=== PATIENT | female | born 1930 | race Caucasian/White ===

== ENCOUNTER → 2017-03-25 | Outpatient (CLI) | payer OTHER ==
[~2017-03-25] MED LIST: ADVIN25/60 INH; ASPI81TA28 PO; ATEN-173 PO; CALC500C3 PO; CALCTAB5 PO; CHOL1000 PO; CHOL100010 PO; CLB100 PO; CYAN10005 PO; ERGO500037 PO; GLIP2.5T11 PO; LEVO100T7 PO; LOSA50TA6 PO; MULT-506 PO; OXYC-57 PO; SIMV20TA2 PO; SYMIN8045 INH; VNTHFA/IN INH; ZNTT/150 PO
[2017-03-25 13:20] VITALS: BP 153/83; PULSE 61; TEMP 36.6; O2SAT 96
--- NOTE | 2017-03-25 15:53 | Radiation Oncology Follow-Up ---
Radiation Oncology Follow-Up Date of Visit March 25, 2017. (Tiana Simon PA-C) Reason For Visit 6 month follow-up (Tiana Simon PA-C) Radiation Completion Date finished radiation 03-28-2016, including external beam and 3 HDR treatments (Tiana Simon PA-C) Diagnosis (1) Endometrial adenocarcinoma Status: Resolved Onset Date: 09/20/2015 Stage: l (B) Permanent Comment: DIAGNOSIS: Uterus, endometrioid adenocarcinoma, FIGO grade 3 , FIGO stage IB TREATMENT: [facility] - (Dr. Gomez - 12/05/2015) Status post completion of radiation therapy 03/28/2016 received external beam treatment 4500 cGy as well as 3 HDR treatments 400 cGy each Last Edited By: Tiana Simon on Sep 12, 2016 10:50 (Tiana Simon PA-C) History of Present Illness Ms. Marrero is a 86-year-old female who presents with a recent history of postmenopausal abnormal uterine bleeding which started in April 2015. She was initially evaluated by Dr. Jarvis in urology who did perform cystoscopy 2014 which showed no evidence of bleeding from the bladder or any abnormal lesions. She was referred to gynecology oncology and in underwent a biopsy by Dr. De La Rosa on 09/20/2015 of the endometrium which revealed FIGO grade 1 endometrioid adenocarcinoma. She did have a transvaginal ultrasound which was completed on 10/05/2015 which revealed a 9 mm hypoechoic avascular structure in the endometrium otherwise no thickened endometrial stripe. She was then referred to Dr. Cece Gomez who recommended extrafascial hysterectomy and left salpingo-oophorectomy. She underwent the abdominal hysterectomy and bilateral sub-nephrectomy on 12/05/2015 which revealed poorly differentiated adenocarcinoma that was predominantly FIGO grade 3 that invaded 87% of the myometrium (13/15 mm). Also noted was extensive lymphovascular space invasion. The tumor measured 2.0 cm in the greatest dimension. There was no involvement of left ovary or fallopian tube. 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 We are now seeing the patient in consultation to discuss the role of radiation therapy. Decision was to treat with external beam radiation therapy as well as HDR treatments. Radiation was completed 03/28/2016 (Tiana Simon PA-C) Interim History She's been doing well over the past 6 months. She denies any vaginal discharge. She has not use the vaginal dilator over the past 6 weeks. She stated that the last time when she had used the vaginal dilator she noted small amount of blood on the dilator. There is been no bleeding since. She denies any abdominal discomfort. There is been no change of urination or bowel habits. She did fall. She was seen by her primary care physician. She denies low back pain. She's been having pain below the right shoulder blade. She has had this off and on for a long period of time. (Tiana Simon PA-C) Allergies Coded Allergies: Alendronate (Verified Allergy, Mild, Unknown, 12/26/15) Iodinated Diagnostic Agents (Verified Allergy, Unknown, Unknown, 12/26/15) Lisinopril (Verified Allergy, Unknown, Cough, 12/26/15) Home Medications Scheduled Aspirin (Aspirin Ec), 81 MG PO DAILY Atenolol (Tenormin), 25 MG PO DAILY Budesonide/Formoterol Fumarate (Symbicort 80-4.5 Mcg/Act), 2 PUFFS INH Q6 Calcium Carbonate (Tums), 1,500 MG PO BID Celecoxib (Celebrex), 1 CAP PO PRN Cholecalciferol (Vitamin D), 1,000 INTER.UNIT PO DAILY Cyanocobalamin (Vitamin B-12), 2,500 MCG PO DAILY Ergocalciferol (Vitamin D 01734 Unit), 1 CAP PO WK Glipizide (Glipizide Er), 5 MG PO DAILY Levothyroxine Sodium (Levothyroxine Sodium), 1 TAB PO DAILY Losartan Potassium (Cozaar), 1 TAB PO DAILY Multivitamin (Multivitamin), 1 TAB PO DAILY Ranitidine (Zantac), 1 TAB PO BID Simvastatin (Zocor), 1 TAB PO DAILY Scheduled PRN Albuterol Hfa (Ventolin Hfa), 2 PUFFS INH Q6H PRN for SOB/Wheezing Oxycodone/Acetaminophen 5MG/325MG (Percocet 5MG/325MG), 1 TABLET PO Q8 PRN for Pain Review of Systems Gastrointestinal: Symptoms: WNL Oral: Symptoms: No Problems Respiratory: Symptoms: SOB With Exertion Urinary: Symptoms: WNL Skin: Symptoms: No Problems (Tiana Simon PA-C) Physical Exam Vital Signs Date Time Temp Pulse Resp B/P Pulse Ox O2 Delivery O2 Flow Rate FiO2 03/25/17 13:20 36.6 61 16 153/83 96 Pain: Side: Bilateral Patient Pain Scale: 0 - 10 Initial Pain Intensity: 0.0 Fatigue: None General Appearance: no apparent distress Eyes: normal inspection, EOMI ENT: normal ENT inspection Respiratory/Chest: lungs clear, no respiratory distress, no accessory muscle use Cardiovascular: regular rate, rhythm, no gallop, no murmur Abdomen: normal bowel sounds, non tender Genitourinary - Female: Normal external genitalia. Speculum examination reveals mild telangiectasia at the apex. There are no visible masses. I manual examination reveals mild postoperative changes noted of the left apex. There is no vaginal discharge and no vaginal bleeding. Bimanual examination reveals no masses. Anal / Rectum: External and internal hemorrhoids. No rectal masses no rectal bleeding. Extremities: no pedal edema Neurologic/Psychiatric: no motor/sensory deficits, alert, normal mood/affect Skin: no rash (Tiana Simon PA-C) Assessment & Plan Plan: Patient was seen and examined by Dr. Rosario. Due to the mild bleeding with use of the dilator instructions were to discontinue use of the dilator. We asked her to return to our office in 6 months. I discussed with her that the shoulder discomfort sounded to be subscapular bursitis. She is going to try using a heating pad. (Tiana Simon PA-C) I agree with note created by Tiana Simon PA-C. I reviewed the patient's chart and information with her. I have examined and evaluated the patient. I reviewed relevant clinical information and answered the patient's and/or family' s questions. (Veeral. Rosario MD) Total Time In Follow-Up I spent 20 minutes speaking to the patient and performing examination. I spent 15 minutes reviewing information and complaint of this note. (Tiana Simon PA-C) I spent 15 minutes examining and counseling the patient. (Veeral. Rosario MD) Copy To Xioamra Meyer M.D.
== END | disposition home or self-care (01) ==
LOC: C.ONC 13:11
PROVIDERS: ATTEND Physician Assistant Medical
DX: Z08 Encounter for follow-up examination after completed treatment for malignant neoplasm (principal); Z92.3 Personal history of irradiation; Z85.89 Personal history of malignant neoplasm of other organs and systems